=== PATIENT | female | born 1995 | race Caucasian/White ===

== ENCOUNTER 2022-10-16 00:29 | Emergency (ER) | payer SELFPAY ==
[~2022-10-16] VITALS: Ht 157.5 cm; Wt 59.0 kg
[2022-10-16 00:51] VITALS: BP 131/81
== END 2022-10-16 01:05 | disposition home or self-care (01) ==
LOC: ER 00:31
DX: S60.861A Insect bite (nonvenomous) of right wrist, initial encounter (principal); Z91.018 Allergy to other foods; W57.XXXA Bitten or stung by nonvenomous insect and other nonvenomous arthropods, initial encounter; Y93.89 Activity, other specified; Y92.89 Other specified places as the place of occurrence of the external cause; Y99.8 Other external cause status